=== PATIENT | male | born 1955 | race Caucasian/White ===

== ENCOUNTER 2021-11-23 16:09 | Emergency (ER) | payer OTHER, MEDICARE ==
[2021-11-23 16:19] VITALS: BP 137/84; PULSE 73; TEMP 99.3; BMI 27.6
== END 2021-11-23 16:30 | disposition home or self-care (01) ==
LOC: FER 16:09
DX: S61.213A Laceration without foreign body of left middle finger without damage to nail, initial encounter (principal); W26.0XXA Contact with knife, initial encounter; Y93.G1 Activity, food preparation and clean up
CPT/HCPCS: 99281-25